=== PATIENT | male | born 1945 | race Caucasian/White ===

== ENCOUNTER 2016-09-17 06:12 | Emergency (ER) | payer MEDICARE ==
[2016-09-17] MEDS ORDERED: KETOROLAC 60 MG/2 ML VIAL IVP STA (07:34)
[2016-09-17] MEDS ORDERED: ACETAMINOPHEN 325 MG TABLET PO STA (07:34)
[2016-09-17] MEDS ORDERED: KETOROLAC 30 MG/ML VIAL ONE (07:41)
[2016-09-17] MEDS ORDERED: ACETAMINOPHEN 325 MG TABLET PO ONE (07:42)
[2016-09-17] MEDS ORDERED: DEXAMETHASONE 10 MG/ML VIAL IVP STA (07:55)
[2016-09-17] MEDS ORDERED: HYDROmorphone 1 MG/ML SYRINGE IVP STA (07:55)
[2016-09-17] MEDS ORDERED: AMOXICILLIN 250 MG CAPSULE PO STA (07:55)
[2016-09-17] MEDS ORDERED: DEXAMETHASONE 10 MG/ML VIAL ONE (08:01)
[2016-09-17] MEDS ORDERED: HYDROmorphone 1 MG/ML SYRINGE ONE (08:01)
[2016-09-17] MEDS ORDERED: AMOXICILLIN 250 MG CAPSULE PO ONE (08:01)
== END 2016-09-17 08:39 | disposition home or self-care (01) ==
DX: J18.9 Pneumonia, unspecified organism (principal); R07.81 Pleurodynia; E78.00 Pure hypercholesterolemia, unspecified
CPT/HCPCS: 36415; 71020; 80048; 84484; 85025; 85379; 93005; 96374; 96375; 99283; 99284; A9270; J1170